=== PATIENT | male | born 1960 | race Caucasian/White ===

== ENCOUNTER 2017-05-03 13:43 | Inpatient (IN) | payer BC ==
[~2017-05-03] VITALS: Ht 177.8 cm; Wt 102.0 kg
[~2017-05-03 13:43] MED LIST: ADVAIR 100/501 DISK IH; AMBIEN5 MG PO; ASPIR-LOW81 MG PO; ATORVASTATIN CA80 MG PO; BRILINTA90 MG PO; CLEOCIN300 MG PO; Cipro PO; DESYREL100 MG PO; ENDOCET 5-3251 EACH PO; LEXAPRO10 MG PO; LEXAPRO20 MG PO; LIPITOR20 MG PO; LIPITOR40 MG PO; LISINOPRIL10 MG PO; LOPRESSOR25 MG PO; NITROSTAT0.4 MG SL; PERCOCET 5/31 TABLET PO; TESSALON200 MG PO; TYLENOL PM1 CAPLET PO; ZOFRAN4 MG PO
[2017-05-03 14:52] LABS: HEMATOCRIT 46.8 % (38.0-50.0); HEMOGLOBIN 15.6 G/DL (12.5-16.6); MCH 30.6 PG (29.0-34.0); MCHC 33.3 G/DL (30.0-36.0); MCV 91.9 FL (86-99); PLATELET COUNT 194 K/uL (156-360); RBC DIS.WIDTH-CV 11.9 % (11.8-14.6); RBC DIS.WIDTH-SD 40.4 % (39-53); RED BLOOD COUNT 5.09 M/uL (4.00-5.50); WHITE BLOOD COUNT 6.8 K/uL (4.1-10.2)
[2017-05-03 15:03] LABS: CHLORIDE 105 mEq/L (99-109); POTASSIUM 4.5 mEq/L (3.7-5.4); SODIUM 140 mEq/L (136-147)
[2017-05-03 15:04] LABS: GLUCOSE 80 mg/dL (70-99)
[2017-05-03 15:08] LABS: CREATININE 0.9 mg/dL (0.6-1.3); GFR ESTIMATE (CALCULATED) > 59 mL/min/ (58.99-99999)
[2017-05-03 15:09] LABS: UREA NITROGEN (BUN) 13 mg/dL (9-23)
[2017-05-03 20:06] LABS: D-DIMER ELISA < 150.00 ng/mLDDU (<230)
[2017-05-03 21:33] LABS: TROP-I INTERPRETATION NEGATIVE; TROPONIN-I < 0.01 ng/mL (0.0-0.30)
[2017-05-03] MEDS ORDERED: CITALOPRAM HBR40 MG PO (23:04)
[2017-05-03] MEDS ORDERED: DOXYCYCLINE MO100 M1 PO (23:05)
[2017-05-03] MEDS ORDERED: BENZONATATE200 MG PO (23:08)
[2017-05-03] MEDS ORDERED: PROAIR HFA8.5 GM IH (23:10)
[2017-05-03] MEDS ORDERED: LISINOPRIL5 MG PO (23:16)
[2017-05-03] MEDS ORDERED: METOPROLOL TART25 MG PO (23:17)
[2017-05-03] MEDS ORDERED: ATORVASTATIN CA20 MG PO (23:17)
[2017-05-03] MEDS ORDERED: LO-DOSE ASPIRIN81 M2 PO (23:22)
[2017-05-04 04:40] VITALS: BP 134/77
[2017-05-04 07:41] VITALS: BP 93/55
[2017-05-04] MEDS ORDERED: DULERA 100 MCG/13 GM IH (10:15)
[2017-05-04] MEDS ORDERED: PREDNISONE5 M1 PO (10:16)
[2017-05-04] MEDS ORDERED: Robitussin AC,Tussi- PO (10:16)
[2017-05-04 11:59] VITALS: BP 144/79
== END 2017-05-04 13:35 | disposition home or self-care (01) | DRG 202 ==
LOC: EME 13:43 → EDOF 05-04 01:26 → ENRESERV 05-04 01:29 → 5SOUTH 05-04 03:07
PROVIDERS: Physician Assistant
DX: J40 Bronchitis, not specified as acute or chronic (principal); J45.901 Unspecified asthma with (acute) exacerbation; R09.02 Hypoxemia; I25.10 Atherosclerotic heart disease of native coronary artery without angina pectoris; E78.5 Hyperlipidemia, unspecified; I10 Essential (primary) hypertension; Z95.5 Presence of coronary angioplasty implant and graft; I42.9 Cardiomyopathy, unspecified; I25.5 Ischemic cardiomyopathy; N20.0 Calculus of kidney; Z87.442 Personal history of urinary calculi; E66.01 Morbid (severe) obesity due to excess calories; Z68.32 Body mass index [BMI] 32.0-32.9, adult
CPT/HCPCS: 71046; 71250; 80048; 83880; 84484; 85027; 85379; 94640; 94640 76; 99202; 99281; 99285; J1650; J2930; J3475